=== PATIENT | male | born 1990 | race Hispanic/Latino ===

== ENCOUNTER 2024-08-02 15:49 | Emergency (ER) | payer SELFPAY ==
[~2024-08-02] VITALS: Ht 167.6 cm; Wt 59.0 kg
--- NOTE | 2024-08-02 16:08 | ERN ---
ED Note History of Present Illness Stated Complaint: MEDICAL CLEAREANCE Time Seen by MD: 15:50 Dictation: Patient is a 34-year-old male here with complaints of feeling very anxious, body shakes onset12 hours prior to arrival PEs currently under custody of of a [place] director of estate and is going in for DUI. He states he drinks a12 pack daily last intake was approximately 13 hours ago. He denies any history of seizures, has been vomiting for the last hour so. Denies suicidal or homicidal ideation. Denies history of DTs Allergies: Coded Allergies: Unable to Assess (Verified Allergy, Unknown, 08/02/24) Past Medical History Social History: ETOH RN Note Reviewed/Agreed w/PFSH: Yes Review of System Dictation CONSTITUTIONAL: Negative except for HPI HEAD/FACE: Negative except for HPI EENT: Negative except for HPI RESPIRATORY: Negative except for HPI GASTROINTESTINAL/ABDOMINAL: Negative except for HPI nausea vomiting GENITOURINARY: Negative except for HPI MUSCULOSKELETAL: Negative except for HPI INTEGUMENTARY: Negative except for HPI NEUROLOGICAL/PSYCH: Negative except for HPI shakes/tremor HEMATOLOGIC/LYMPHATIC: Negative except for HPI All Systems Negative, Except as noted above. 13 point review of systems assessed and all negative except for above. Initial Vital Sign VS Vital Signs Date Time Temp Pulse Resp B/P (MAP) Pulse Ox O2 Delivery O2 Flow Rate FiO2 08/02/24 16:36 97.3 95 18 134/87 98 Room Air 0 Physical Exam Dictation Vital Signs reviewed General Appearance: Alert, oriented x 3, mild acute distress, well developed, nourished. Head and Face: non-traumatic. Eyes: PERRL, pink conjunctivas, eyelid no trauma, anterior chamber with arcus senilis. Ears: Pinnas intact and no signs of trauma or erythema ear canals clear and no discharge TM no erythema Nose: No discharge, no bleeding. Oropharynx: Mouth normal, tongue pink, pharynx clear,no erythema, tonsils no exudates, no abscesses noted, mucous membrane moist Neck: Supple, non-tender, no thyromegaly, no masses, no JVD, no bruits Breast:Deferred Chest:No tenderness, no crepitus, no paradoxical movement, no retractions Lungs:Clear, well-ventilated, symmetric, no rales, no wheezing, no rhonchi, no stridor, good breath sounds bilaterally Heart: Tachycardic, no murmur, no gallops Vascular: no peripheral edema, Abdomen: Soft, positive bowel sounds, nondistended, no guarding, nontender, no rebound, no masses no hepatomegaly, no splenomegaly, no Alaniz's sign, no hernias. Actively vomiting in triage Rectal: Deferred Genital: Deferred Neurological: Normal speech, motor function intact, sensory function intact patient has tremor to bilateral hands. Appears anxious Musculoskeletal: Neck nontender, full range of motion, back nontender, full range of motion, Extremities: nontender, full range of motion Skin: Color pink, dry, no turgor, no rash, no lacerations, no abrasions, no contusions. Lymphatic: Deferred Results (Laboratory/Radiology) Laboratory/Radiology Laboratory Tests Test 08/02/24 16:45 08/02/24 17:07 Urine Color YELLOW (YELLOW) Urine Appearance CLEAR (CLEAR) Urine pH 6.0 (5.0-8.0) Urine Specific [place] 1.025 (1.001-1.031) Urine Protein 200 mg/dL (NEGATIVE) H Urine Glucose (UA) NEGATIVE mg/dL (NEGATIVE) Urine Ketones >=80 mg/dL (NEGATIVE) Urine Occult Blood SMALL (NEGATIVE) H Urine Nitrate NEGATIVE (NEGATIVE) Urine Bilirubin NEGATIVE mg/dL (NEGATIVE) Urine Urobilinogen 0.2 mg/dL (0.2-1.0) Urine Leukocyte Esterase NEGATIVE Son[place]/uL Urine RBC 2-5 /HPF (0-1) H Urine WBC 0-1 /HPF (0-1) Urine Bacteria None /HPF (None Seen) Urine Opiates Screen NEGATIVE (NEGATIVE) Urine Barbiturates Screen NEGATIVE (NEGATIVE) Urine Phencyclidine Screen NEGATIVE (NEGATIVE) Urine Amphetamines Screen NEGATIVE (NEGATIVE) Urine Benzodiazepines Screen NEGATIVE (NEGATIVE) Urine Cocaine Screen NEGATIVE (NEGATIVE) Urine Marijuana (THC) Screen POSITIVE (NEGATIVE) H White Blood Count 5.7 K/uL (4.8-10.8) Red Blood Count 5.04 MIL/uL (4.50-6.20) Hemoglobin 17.1 g/dL (14.0-18.0) Hematocrit 49.1 % (42-54) Mean Corpuscular Volume 97.4 fL (79-99) Mean Corpuscular Hemoglobin 33.9 pg (27.0-33.0) H Mean Corpuscular Hemoglobin Concent 34.8 g/dL (32.0-36.0) Red Cell Distribution Width 12.1 % (11.0-15.5) Platelet Count 215 K/uL (130-400) Mean Platelet Volume 10.1 fL (7.5-10.5) Immature Granulocyte % (Auto) 0.2 % (0-1) Neutrophils (%) (Auto) 76.3 % (40.0-77.0) Lymphocytes (%) (Auto) 12.1 % (21.0-51.0) L Monocytes (%) (Auto) 9.5 % (3.0-13.0) Eosinophils (%) (Auto) 1.2 % (0.0-8.0) Basophils (%) (Auto) 0.7 % (0.0-5.0) Neutrophils # (Auto) 4.4 K/uL (1.8-7.7) Lymphocytes # (Auto) 0.7 K/uL (1.0-4.8) L Monocytes # (Auto) 0.5 K/uL (0.1-1.0) Eosinophils # (Auto) 0.07 K/uL (0.00-0.70) Basophils # (Auto) 0.04 K/uL (0.00-0.20) Absolute Immature Granulocyte (auto 0.01 K/uL (0-1) Nucleated Red Blood Cells 0.0 % (0.0-0.19) Sodium Level 132 mmol/L (136-145) L Potassium Level 4.1 mmol/L (3.5-5.1) Chloride Level 92 mmol/L (101-111) L Carbon Dioxide Level 29 mmol/L (21-32) Blood Urea Nitrogen 6 mg/dL (7-18) L Creatinine 0.7 mg/dL (0.5-1.3) Glomerular Filtration Rate Calc 122 mL/min (>90) Random Glucose 89 mg/dL (70-105) Total Calcium 10.0 mg/dL (8.5-10.1) Magnesium Level 2.00 mg/dL (1.80-2.40) Salicylates Level < 2.8 mg/dL (2.8-20.0) L Acetaminophen Level < 1 mcg/mL (10-29) L Serum Alcohol < 3 mg/dL (0-10) Labs Reviewed?: Yes ED Course ED Course Orders Procedure Category Date Status Time Lorazepam 2 Mg PHA 08/02/24 Complete (Ativan) 16:30 Cbc With Differential LAB 08/02/24 Complete 16:04 Alcohol, Blood LAB 08/02/24 Complete 16:04 Salicylate LAB 08/02/24 Complete 16:04 Acetaminophen LAB 08/02/24 Complete 16:04 Urinalysis Profile LAB 08/02/24 Complete 16:04 0.9%Nacl 1000ml (Ns PHA 08/02/24 In Process 1000ml) 16:30 Basic Metabolic Panel LAB 08/02/24 Complete 16:04 Ondansetron 4mg Inj PHA 08/02/24 Complete (Zofran 4mg Inj) 16:30 Magnesium LAB 08/02/24 Complete 16:04 Drug Screen Urine LAB 08/02/24 Complete 16:04 Current Medications Medications (Trade) Dose Ordered Sig/Marivel Route PRN Reason Start Time Stop Time Status Last Admin Dose Admin Lorazepam (AtiVAN) 2 mg ONCE ONCE IVP 08/02/24 16:30 08/02/24 16:31 DC 08/02/24 17:12 Ondansetron HCl (zoFRAN 4MG INJ) 4 mg ONCE ONCE IVP 08/02/24 16:30 08/02/24 16:31 DC 08/02/24 17:12 Sodium Chloride 1,000 ml @ 125 mls/hr ONCE ONCE IV 08/02/24 16:30 08/03/24 00:29 08/02/24 17:12 Vital Signs Date Time Temp Pulse Resp B/P (MAP) Pulse Ox O2 Delivery O2 Flow Rate FiO2 08/02/24 16:36 97.3 95 18 134/87 98 Room Air 0 1755/VITAL SIGNS ARE STABLE AND PATIENT HEMODYNAMICALLY STABLE. STATES HE FEELS BETTER AFTER ATIVAN. WE WILL BE DISCHARGED TO THE CUSTODY OF [facility] WITH SOME LIBRIUM AND HAVE HIM FOLLOW UP WITH HIS DOCTOR SOON HE IS OUT OF CUSTODY. Medical Decision Making MDM MEDICAL DISCHARGE MAKING BASED ON LABS AND TOXICOLOGY STUDIES FOR ALCOHOL WITHDRAWAL. ALCOHOL IS NEGATIVE PATIENT HEMODYNAMICALLY STABLE NO ELECTROLYTE IMBALANCE NO DEHYDRATION. MEDICALLY CLEARED FOR INCARCERATION AND SENT OUT WITH LIBRIUM. DX & DISP Disposition: Discharge Departure Impression: Primary Impression: Alcohol abuse, daily use Additional Impressions: Alcohol withdrawal syndrome without complication, Marijuana smoker Condition: Stable Scripts Chlordiazepoxide HCl (Librium 25 mg Cap) 25 Mg Cap 25 MG PO Q6HPRN PRN for ALCOHOL WITHDRAWAL SYMPTOMS, #20 CAP Prov: BROOKLYN HAWLEY NP 08/02/24 Additional Instructions: FOLLOW-UP WITH PRIMARY CARE PROVIDER IN 1 TO 2 DAYS. TAKE MEDICATIONS DIRECTED HERE IN THE EMERGENCY ROOM. OKAY TO CONTINUE HOME MEDICATIONS UNLESS OTHERWISE DISCUSSED DURING YOUR VISIT IN THE EMERGENCY ROOM TODAY. RETURN TO YOUR NEAREST EMERGENCY ROOM IF SYMPTOMS WORSEN OR IF THERE IS NO IMPROVEMENT. CALL 911 IF YOU NEED IMMEDIATE ASSISTANCE. TAKE TYLENOL OR MOTRIN [id number] NEEDED AND IF NO CONTRAINDICATIONS ARE PRESENT. INCREASE ORAL HYDRATION. A WOUND CULTURE OR URINE CULTURE WAS ORDERED HERE IN THE EMERGE [facility] ROOM DEPARTMENT PLEASE FOLLOW-UP WITH PRIMARY CARE PROVIDER AND ADVISE THEM TO GET REPEAT PORTS FROM OUR FACILITY. IF YOU HAD ANY IVÁN WRAP/SPLINTS THAT WERE APPLIED HERE, PLEASE DO NOT REMOVE THEM UNTIL YOU SEE YOUR PRIMARY CARE OR SPECIALTY. PATIENT MEDICALLY CLEARED FOR INCARCERATION AND TRANSPORT. STOP ALCOHOL AND ILLEGAL DRUG ABUSE. INCREASE YOUR FLUID INTAKE. TAKE LIBRIUM DIRECTED FOR SHAKES OR ACCELERATED HEART RATE DUE TO WITHDRAWAL SYMPTOMS FROM ALCOHOL. Referrals: SELF,REFERRAL (PCP) Time of Disposition: 17:55 I have reviewed the case, and I agree with, Diagnosis and Plan BROOKLYN HAWLEY NP Aug 02, 2024 16:08
[2024-08-02 17:02] LABS: APPEARANCE,URINE CLEAR (CLEAR); BILIRUBIN,URINE NEGATIVE (NEGATIVE); COLOR,URINE YELLOW (YELLOW); GLUCOSE, URINE (UA) NEGATIVE (NEGATIVE); KETONES,URINE >=80 mg/dL (NEGATIVE); LEUKOCYTE ESTERASE ,URINE NEGATIVE Leu/uL (NEGATIVE); NITRATE,URINE NEGATIVE (NEGATIVE); OCCULT BLOOD,URINE SMALL (NEGATIVE); PROTEIN,URINE 200 mg/dL (NEGATIVE); UROBILINOGEN,URINE 0.2 mg/dL (0.2-1.0)
[2024-08-02 17:07] LABS: ADD UA MICROSCOPIC YES
[2024-08-02 17:08] LABS: MUCUS,URINE MOD LPF (None Seen); WBC,URINE 0-1 /HPF (0-1)
[2024-08-02] MEDS: ondanSETRON 4MG INJ IVP ONE (17:12)
[2024-08-02] MEDS: LORazepam 2 MG/ML 1 ML VIAL IVP ONE (17:12)
[2024-08-02] MEDS: 0.9%NACL 1000ML 1,000 ML IV ONE (17:12)
[2024-08-02 17:13] LABS: AMPHET/METH SCREEN,URINE NEGATIVE (NEGATIVE); BARBITURATE SCREEN, URINE NEGATIVE (NEGATIVE); BENZODIAZEPINES SCREEN,URINE NEGATIVE (NEGATIVE); CANNABINOID SCREEN,URINE POSITIVE (NEGATIVE); COCAINE SCREEN,URINE NEGATIVE (NEGATIVE); OPIATE SCREEN,URINE NEGATIVE (NEGATIVE); PHENCYCLIDINE SCREEN,URINE NEGATIVE (NEGATIVE)
[2024-08-02 17:14] LABS: BASOPHILS # (AUTO) 0.04 K/uL (0.00-0.20); BASOPHILS % (AUTO) 0.7 % (0.0-5.0); EOSINOPHILS # (AUTO) 0.07 K/uL (0.00-0.70); EOSINOPHILS % (AUTO) 1.2 % (0.0-8.0); HEMATOCRIT 49.1 % (42-54); IMMATURE GRANULOCYTE ABSOLUTE 0.01 K/uL (0-1); LYMPHOCYTES # (AUTO) 0.7 K/uL (1.0-4.8); LYMPHOCYTES % (AUTO) 12.1 % (21.0-51.0); MEAN CORPUSCULAR HEMOGLOBIN 33.9 pg (27.0-33.0); MEAN CORPUSCULAR HGB CONC 34.8 g/dL (32.0-36.0); MEAN CORPUSCULAR VOLUME 97.4 fL (79-99); MONOCYTES # (AUTO) 0.5 K/uL (0.1-1.0); MONOCYTES % (AUTO) 9.5 % (3.0-13.0); NEUTROPHILS # (AUTO) 4.4 K/uL (1.8-7.7); NEUTROPHILS % (AUTO) 76.3 % (40.0-77.0); PLATELET COUNT (AUTO) 215 K/uL (130-400); RED BLOOD CELL COUNT(AUTO) 5.04 MIL/uL (4.50-6.20); RED CELL DISTRIBUTION WIDTH 12.1 % (11.0-15.5); WHITE BLOOD COUNT (AUTO) 5.7 K/uL (4.8-10.8)
[2024-08-02 17:23] LABS: CARBON DIOXIDE 29 mmol/L (21-32); CHLORIDE 92 mmol/L (101-111); CREATININE 0.7 mg/dL (0.5-1.3); GLOMERULAR FILTR. RATE CALC 122 mL/min (>90); GLUCOSE,RANDOM 89 mg/dL (70-105); POTASSIUM 4.1 mmol/L (3.5-5.1); SODIUM SERUM 132 mmol/L (136-145); UREA NITROGEN, BLOOD 6 mg/dL (7-18)
[2024-08-02 17:27] LABS: ALCOHOL, BLOOD < 3 mg/dL (0-10)
[2024-08-02 17:30] LABS: ACETAMINOPHEN < 1 mcg/mL (10-29); SALICYLATE < 2.8 mg/dL (2.8-20.0)
[2024-08-02] MEDS ORDERED: CHLO25CA6 PO (17:56)
[2024-08-02 18:20] VITALS: BP 139/91; PULSE 96; RESP 19; TEMP 98.5; O2SAT 99
== END 2024-08-02 18:26 ==
LOC: EDH 15:49
DX: F10.230 Alcohol dependence with withdrawal, uncomplicated (principal); F12.90 Cannabis use, unspecified, uncomplicated; Y90.0 Blood alcohol level of less than 20 mg/100 ml
CPT/HCPCS: 99284; 96374; 96361; 96375; 83735; 80048; 80305; 85025; 81001; 36415; G0481; J7030; J2405; J2060